=== PATIENT | male | born 1970 | race Caucasian/White ===

== ENCOUNTER → 2018-05-11 10:52 | Outpatient (REF) | payer SELFPAY | LOC: OM 10:52 | PROVIDERS: PCP Nurse Practitioner Family; Visit Provider Nurse Practitioner Family | DX: Z02.79 Encounter for issue of other medical certificate (principal) ==

== ENCOUNTER 2020-04-03 16:34 | Inpatient (IN) | payer OTHER, SELFPAY ==
[2020-04-03] VITALS (30 sets, daily range): BP systolic 116–137; BP diastolic 47–93; PULSE 65–88; RESP 17–39; TEMP 36.7–37; O2SAT 92–99
--- NOTE | 2020-04-03 16:30 | DI.CT_ITS ---
EXAM: CT CHEST/ABD/PEL W CLINICAL HISTORY: 10ft fall, R sided pain, trauma TECHNIQUE: COMPARISON: No exams were available for comparison FINDINGS: CT examination of the chest, abdomen, and pelvis was performed with intravenous infusion of 100 cc of Omnipaque 350. There are minimally displaced fractures involving right 1st through 9th proximal ribs sparing the 4th and 8th ribs, also there are anterolateral fractures involving this 2nd through 9th ribs sparing the 4th and 8th ribs. This implies multiple flail segments although fractures are as noted above essent ially nondisplaced. Transverse process fracture noted on the right T2. There is a small right apical pneumothorax. There are areas of apparent contusion or atelectasis see n dependently in both lungs. No focal consolidation seen. No gross hemo thorax identified. No medi astinal or extra thoracic vascular injury seen. No evidence of pulmonary embolic disease. No medias tinal or hilar adenopathy. There is no evidence of hepatic or splenic injury. A few tiny low-attenuation hepatic masses are see n too small to characterize probably benign. Pancreas is largely fatty replaced otherwise unremarkab le. No biliary dilatation. Gallbladder CT normal. 3 cm right adrenal homogeneous nodule noted, att enuation measurements in the 35-40 Hounsfield unit range, additional evaluation with noncontrast and contrast enhanced adrenal CT recommended. Left adrenals unremarkable. No evidence of acute renal injury or urinary tract obstruction. No significant abdominal wall hernia or hematoma. No evidence of bowel injury. Normal appearance of the appendix. No abdominal vascular injury seen. IMPRESSION: Multiple rib fractures on the right with associated areas of pulmonary contusion and/or atelectasis a nd a small right pneumothorax. 3 cm incidental intermediate attenuation right adrenal nodule, follow-up with adrenal protocol CT req uested to rule out neoplastic disease.
--- NOTE | 2020-04-03 16:30 | DI.CT_ITS ---
EXAM: CT HEAD CERVICAL SPINE WO CLINICAL HISTORY: 10ft fall, R sided pain, trauma TECHNIQUE: COMPARISON: CT CT CHEST/ABD/PEL W from 04/03/2020 FINDINGS: Noncontrast CT the cervical spine was performed. There is a right apical pneumothorax and there are nondisplaced fractures of proximal aspect of 1st through 3rd ribs transverse process fracture T2 also noted. No fracture seen involving the cervical spine. No cervical facet dislocation. Tracheolaryn geal structures appear intact. No cervical mass or adenopathy. Noncontrast cranial CT was performed. No calvarial fracture. Partial opacification of ethmoid sphen oid maxillary and frontal sinuses consistent with chronic sinusitis. There is no evidence of acute i ntracranial hemorrhage, mass effect, or midline shift. The orbital and temporal bone structures appe ar intact. Mastoid air cells are clear. IMPRESSION: No evidence of acute intracranial injury. No evidence of cervical spine injury. Rib fractures noted on the right of ribs 1 through 3 and right T2 transverse process fracture noted along with a small right apical pneumothorax, please see accomp anying chest CT report.
--- NOTE | 2020-04-03 16:44 | ED.GENADUL_ITS ---
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 Denies a loss of consciousness. He was able to get up and move everything. He now has right chest, back, right upper extremity pain. Vital signs are stable and he is oxygenating 94% on RA. Patient placed on hall monitor, IV access established, patient given parenteral analgesia. Given the height of the fall, the clear right upper thorax traumatic injury, patient was referred for CT imaging and plain x-ray of the right shoulder. No acute intracranial findings. There is no traumatic cervical spine abnormality. There are minimally displaced and nondisplaced fractures involving the right first, second, third, fifth, sixth, seventh, ninth ribs posteriorly and nondisplaced right rib fractures anteriorly along the second, third, fifth, sixth, seventh, ninth ribs and T2 right-sided transverse process fracture. There is also minimal right apical pneumothorax. No evidence of acute injury in the abdomen or pelvis. His pain is improved with medication. He has not had tachycardia, nor hypotension, nor hypoxia. He is not anticoagulated and takes no regular medications. Case discussed with Dr. Donahue and will admit for further management. HPI General Mode of arrival: wheelchair . Date/Time Provider Initiated Documentation: 04/03/20 16:34 . Limitations to Documentation: no limitations . Information obtained by: patient . History of Present Illness 49 year old M presents to the emergency department with the chief complaint of 10 foot fall, right-sided pain, described as moderate, Quality is described as dull and constant, and is localized to the chest and right. Patient reports radiation to back. Patient started experiencing this minute(s) and it has been constant. Rest improves symptom(s), Movement worsens symptoms . Patient notes other (No neck pain. Denies loss of consciousness. Denies abdominal pain.); denies headaches and syncope. Patient did receive the following treatments prior to arrival, other (Tylenol) Related Data Home Medications Medication Instructions Recorded Confirmed cyclobenzaprine 10 mg PO TID PRN PRN #60 tab 04/05/20 docusate sodium [Colace] 100 mg PO BID #60 cap 04/05/20 ibuprofen 800 mg PO Q8H #60 tab 04/05/20 oxycodone 5 mg PO Q4H PRN PRN #20 tab 04/05/20 Previous Rx's Medication Instructions Recorded cyclobenzaprine 10 mg PO TID PRN PRN #60 tab 04/05/20 docusate sodium [Colace] 100 mg PO BID #60 cap 04/05/20 ibuprofen 800 mg PO Q8H #60 tab 04/05/20 oxycodone 5 mg PO Q4H PRN PRN #20 tab 04/05/20 Allergies Allergy/AdvReac Type Severity Reaction Status Date / Time Penicillins AdvReac Severe swell up Unverified 04/03/20 16:44 General Stated Complaint: Trauma AICHA: 2 Review of Systems Narrative: Hurts to take a breath, right-sided chest and back pain, no abdominal pain. Denies headache, loss of consciousness, or neck pain. Recently healthy and no concern for illness or sick contact. 6 systems reviewed and otherwise negative [facility] Medical History (Updated 04/03/20 @ 21:57 by Veronica Rolon DO) Chronic sinusitis (Acute) Contusion of lung without open wound into thorax (Acute) Fracture of transverse process of spine without spinal cord lesion (Acute) Low-energy blunt traumatic injury of chest (Acute) Traumatic pneumohemothorax (Acute) Social History Smoking/Tobacco Use Status: Never Alcohol Intake: current Alcohol Intake frequency: a few times a week Alcohol type: beer Substance use type: does not use Do you feel safe at home: Yes Do you feel safe in your relationship?: Yes Exam Narrative Exam Narrative: GEN: awake, alert, oriented 3. Pleasant, well groomed, i nteractive. HEAD: Normocephalic, atraumatic ENT: Mucous membranes moist, oropharynx unremarkable, External ear exam unremarkable EYES: PERRL, EOMI NECK: Full ROM, no WINSTON, no menigismus, no step-off or deformity Back: no midline step-off, tenderness or deformity CHEST/RESP: Right chest/thoracic body rolling machine tender to palpation, clear to auscultation bilateral, no wheeze/rhonchi/rales CARDIOVASCULAR: RRR, no murmur, rub duke. 2+ Rad pulse bilateral ABDOMEN: Soft, nontender, no mass. +Bowel sounds EXT: Right arm held in internal rotation, distal motor is within normal limits. Left upper extremity unremarkable Neuro: Grossly normal neurologic exam, conversant, interactive. Psych: Speech fluent, thoughts congruent, affect normal Course Vital Signs Vital signs: Vital Signs Temperature 36.7 C 04/03/20 16:38 Pulse 68 04/03/20 16:38 Respiratory Rate 25 H 04/03/20 16:38 Blood Pressure 122/68 04/03/20 16:38 Pulse Oximetry 94 L 04/03/20 16:38 Temperature 36.7 C 04/03/20 16:38 Temperature Source Skin 04/03/20 16:38 Pulse 68 04/03/20 16:38 Respiratory Rate 25 H 04/03/20 16:38 Blood Pressure 122/68 04/03/20 16:38 Pulse Oximetry 94 L 04/03/20 16:38 Oxygen Delivery Method Room Air 04/03/20 16:38 Oxygen Flow Rate 0 04/03/20 16:38 Pain Level 10 04/03/20 16:38
[2020-04-03] MEDS: Normal Saline Flush 10 ML SYR IVP (16:45)
[2020-04-03] MEDS: Normal Saline 1,000 ML 1000 ML IV (16:50)
[2020-04-03] MEDS: HYDROmorphone 2 MG/ML VIAL 1 MG IVP (16:53)
[2020-04-03 16:57] LABS: Abs Immature Grans 0.06 k/cumm (0.0-0.09); Absolute Basophil Count 0.02 k/cumm (0.0-0.2); Absolute Eosinophil Count 0.24 k/cumm (0.0-0.7); Absolute Lymphocyte Count 2.22 k/cumm (1.2-3.4); Absolute Monocyte Count 0.81 k/cumm (0.11-0.7); Absolute Neutrophil Count 8.45 k/cumm (1.2-6.7); Basophils % 0.2; HCT 42.8 % (40.0-50.0); HGB 14.4 g/dL (13.5-17.5); Immature Grans % 0.5 %; Lymphocytes % 18.8; Mean Corp. HGB Concentration 33.6 g/dL (32.0-36.0); Mean Corpuscular Hemoglobin 28.9 pg (27.0-33.0); Mean Corpuscular Volume 85.9 fL (80-95); Mean Platelet Volume 9.5 fL (8.0-11.0); Monocytes % 6.9; Neutrophils % 71.6; Platelet Count 315 x1000/uL (130-400); RBC 4.98 m/cumm (4.50-6.00); RBC Distribution Width 13.3 % (11.8-14.1)
--- NOTE | 2020-04-03 17:00 | DI.RAD_ITS ---
EXAM: XR SHOULDER RT COMPLETE 2+V CLINICAL HISTORY: pain after fall TECHNIQUE: COMPARISON: No exams were available for comparison FINDINGS: Four views were obtained. There is no evidence of acute fracture or dislocation. Tiny right apical pneumothorax noted as seen on chest CT. IMPRESSION:
[2020-04-03 17:38] LABS: ALT 48 U/L (16-63); AST 61 U/L (15-37); Albumin 4.1 g/dL (3.4-5.0); Alkaline Phosphatase 74 U/L (46-116); Anion Gap 8.7 mmol/L (3-11); BUN 20 mg/dL (7-18); Bilirubin, Total 0.5 mg/dL (0.2-1.0); CO2 27.3 mmol/L (21.0-32.0); CREATININE 1.35 mg/dL (0.70-1.30); Calcium 8.7 mg/dL (8.5-10.1); Chloride 100 mmol/L (98-107); Estimated GFR 56.41 (mL/min/1.73m2); Glucose 139 mg/dL (74-106); Potassium 3.6 mmol/L (3.5-5.1); Sodium 136 mmol/L (136-145)
[2020-04-03] MEDS: Omnipaque 350 MG/ML 100 ML BTL IJ (17:58)
[2020-04-03] MEDS: Normal Saline - Diluent 50 ML VIAL IV (17:58)
--- NOTE | 2020-04-03 18:03 | DI.VRAD_ITS ---
Addendum created by Lavonne Devries MD on 04/03/2020 6:13:23 PM EDT I discussed case findings with JULIA LENNON 04/03/2020 6:12 PM EST. Initial report created on 04/03/2020 6:03:22 PM EDT PROCEDURE INFORMATION: Exam: CT Head Without Contrast Exam date and time: 04/03/2020 4:45 PM Age: 49 years old Clinical indication: Headache; Other: Head pain S/P fall 10 ft. ; Neck pain; Patient HX: Fall 10 ft. Right sided pain TECHNIQUE: Imaging protocol: Computed tomography of the head without contrast. Radiation optimization: All CT scans at this facility use at least one of these dose optimization techniques: automated exposure control; mA and/or kV adjustment per patient size (includes targeted exams where dose is matched to clinical indication); or iterative reconstruction. COMPARISON: No relevant prior studies available. FINDINGS: Brain: Normal. No hemorrhage. Unremarkable white matter. No mass effect. Ventricles: Normal. No ventriculomegaly. Bones/joints: Unremarkable. No acute fracture. Sinuses: Prominent left maxillary sinus retention cyst. There is moderate mucoperiosteal thickening noted in the sphenoid sinuses. Moderate mucoperiosteal thickening in the ethmoid air cells extending to the left frontoethmoid recess and frontal sinus. Mastoid air cells: Visualized mastoid air cells are well aerated. Soft tissues: Unremarkable. IMPRESSION: 1. No evidence for acute intracranial abnormality. 2. Moderate to severe chronic appearing sinus disease. PROCEDURE INFORMATION: Exam: CT Cervical Spine Without Contrast Exam date and time: 04/03/2020 4:45 PM Age: 49 years old Clinical indication: Headache; Other: Head pain S/P fall 10 ft. ; Neck pain; Patient HX: Fall 10 ft. Right sided pain TECHNIQUE: Imaging protocol: Computed tomography images of the cervical spine without contrast. Radiation optimization: All CT scans at this facility use at least one of these dose optimization techniques: automated exposure control; mA and/or kV adjustment per patient size (includes targeted exams where dose is matched to clinical indication); or iterative reconstruction. COMPARISON: No relevant prior studies available. FINDINGS: Vertebrae: There is mild cervical spondylosis most severe C5-C6 with bilateral foraminal narrowing, no stenosis. No evidence for fracture. Spinal alignment is anatomic. Vertebral body height is well preserved. C2-C3: No significant disc protrusion. No severe spinal canal stenosis. No significant neural foraminal narrowing. C3-C4: No significant disc protrusion. No severe spinal canal stenosis. No significant neural foraminal narrowing. C4-C5: No significant disc protrusion. No severe spinal canal stenosis. No significant neural foraminal narrowing. C5-C6: No significant disc protrusion. No severe spinal canal stenosis. No significant neural foraminal narrowing. C6-C7: No significant disc protrusion. No severe spinal canal stenosis. No significant neural foraminal narrowing. C7-T1: No significant disc protrusion. No severe spinal canal stenosis. No significant neural foraminal narrowing. Other bones/joints: There are fractures of the proximal aspects of the 1st 2nd and 3rd ribs on the right. There is a nondisplaced transverse process fracture on the right at T2. The Soft tissues: Unremarkable. Sinuses: Sinus disease as noted in brain CT report. Thyroid: Mild asymmetry right lobe of the thyroid gland, anatomic variant. Lymph nodes: Incidental note made of lymphoid hyperplasia at the tongue base. Lungs: Lung apices are normal. Pleural space: Concern for trace right apical pneumothorax and probable associated azygos lobe. IMPRESSION: 1. No evidence for acute posttraumatic cervical spine abnormality. Proximal right 1st through 3rd rib fractures and T2 right-sided transverse process fractures noted. 2. Apparent minimal right apical pneumothorax. Dictated and Authenticated by: Lavonne Devries MD. Ordering:SCHUYLER Christopher MD
--- NOTE | 2020-04-03 18:39 | DI.VRAD_ITS ---
Addendum created by Yamila Hope MD on 04/03/2020 6:42:28 PM EDT Sagittal and coronal reformats are submitted for review. The sagittal images demonstrate Schmorl's nodes in the superior endplate of a few thoracic and lumbar vertebral bodies, which is degenerative in nature. Initial report created on 04/03/2020 6:38:59 PM EDT PROCEDURE INFORMATION: Exam: CT Chest With Contrast Exam date and time: 04/03/2020 5:31 PM Age: 49 years old Clinical indication: Other: RT sided pain after fall; Other: Right sided cp after fall TECHNIQUE: Imaging protocol: Computed tomography of the chest with intravenous contrast. Radiation optimization: All CT scans at this facility use at least one of these dose optimization techniques: automated exposure control; mA and/or kV adjustment per patient size (includes targeted exams where dose is matched to clinical indication); or iterative reconstruction. Contrast material: OMNIPAQUE 350; Contrast volume: 100 ml; Contrast route: INTRAVENOUS (IV); COMPARISON: No relevant prior studies available. FINDINGS: Lungs: Mild ground-glass opacity seen throughout the lung siddiqi may represent mild contusion versus atelectasis. Of note, an azygos lobe is noted in the right lung apex containing the azygos vein, which is adjacent to the apical pneumothorax Pleural space:There is a pneumothorax seen anterior to the right middle lobe and a smaller pneumothorax at the right lung apex. There is a trace right pleural effusion. Heart: No cardiomegaly. No pericardial effusion. Aorta: Unremarkable. No aortic aneurysm. Lymph nodes: Unremarkable. No enlarged lymph nodes. Bones/joints: There are minimally displaced and nondisplaced fractures involving the right 1st, 2nd, 3rd, 5th, 6th , 7th and 9th rib fractures posteriorly at the costovertebral junction. There are also nondisplaced right rib fractures anterior laterally involving the 2nd, 3rd, 5th, 6th, 7th and 9th ribs. Soft tissues: Unremarkable. IMPRESSION: 1. Small pneumothorax seen predominantly at the right lower lobe and right lung apex. Of note there is an azygos vein traversing the lower right lung apex. 2. Multiple anterior and posterior right rib fractures which are minimally displaced and nondisplaced. 3. Mild ground-glass opacities may represent mild contusion versus atelectasis. PROCEDURE INFORMATION: Exam: CT Abdomen And Pelvis With Contrast Exam date and time: 04/03/2020 5:31 PM Age: 49 years old Clinical indication: Other: RT sided pain after fall; Other: Right sided cp after fall TECHNIQUE: Imaging protocol: Computed tomography of the abdomen and pelvis with intravenous contrast. Radiation optimization: All CT scans at this facility use at least one of these dose optimization techniques: automated exposure control; mA and/or kV adjustment per patient size (includes targeted exams where dose is matched to clinical indication); or iterative reconstruction. Contrast material: OMNIPAQUE 350; Contrast volume: 100 ml; Contrast route: INTRAVENOUS (IV); COMPARISON: No relevant prior studies available. FINDINGS: Liver: There are small hypodensities in the liver, which are too small to characterize but could represent cysts. Gallbladder and bile ducts: Normal. No calcified stones. No ductal dilation. Pancreas: There is fatty atrophy of the pancreas. Spleen: Normal. No splenomegaly. Adrenals: There is a 3.3 cm nodule in the right adrenal gland. Kidneys and ureters: Normal. No hydronephrosis. Stomach and bowel: Unremarkable. No obstruction. No mucosal thickening. Appendix: No evidence of appendicitis. Intraperitoneal space: Unremarkable. No free air. No significant fluid collection. Vasculature: Unremarkable. No abdominal aortic aneurysm. Lymph nodes: Unremarkable. No enlarged lymph nodes. Bladder: Unremarkable as visualized. Reproductive: Unremarkable as visualized. Bones/joints: Unremarkable. No acute fracture. Soft tissues: Unremarkable. IMPRESSION: 1. No evidence of acute injury in the abdomen and pelvis. 2. 3.3 cm right adrenal gland nodule, which is nonspecific. If there is further clinical concern, nonemergent dedicated adrenal gland imaging may be obtained. THIS REPORT CONTAINS FINDINGS THAT MAY BE CRITICAL TO PATIENT CARE. The findings were verbally communicated via telephone conference with JULIA LENNON at 6:23 PM EDT on 04/03/2020. The findings were acknowledged and understood. Dictated and Authenticated by: Yamila Hope MD. Ordering:SCHUYLER Christopher MD
--- NOTE | 2020-04-03 18:45 | DI.VRAD_ITS ---
PROCEDURE INFORMATION: Exam: XR Right Shoulder Exam date and time: 04/03/2020 5:06 PM Age: 49 years old Clinical indication: Shoulder; Right; Patient HX: Pain after fall 10 ft. TECHNIQUE: Imaging protocol: XR Right shoulder. Views: 2 or more views. COMPARISON: No relevant prior studies available. FINDINGS: Bones/joints: There is no acute fracture or dislocation. Pleural space: The known right apical pneumothorax is partially visualized. Soft tissues: Normal. IMPRESSION: 1. No acute fracture or dislocation. 2. Partially visualized right apical pneumothorax, seen on prior CT of the chest. Dictated and Authenticated by: Yamila Hope MD. Ordering:SCHUYLER Christopher MD
--- NOTE | 2020-04-03 18:51 | W.PM.HP.N ---
Date of service: 04/03/20 Time of Service: 18:51 Assessment and Plan Assessment and plan (1) Multiple fractures of ribs of right side: Status: Acute Assessment and plan: pulm toilet pain control obs for bleeding and over injury -high risk of pneumonia. will have anethesia see for rib blocks and PT . TP fx does not require bracing, adn is stable Fx. 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 He landed on his right chest. He sustained multiple right rib fractures. He has a trace right pneumothorax. There is also some mild contusion to the right lung. He also sustained a fractured T2 vertebral process and 8 ribs on the right side. He denies any loss of consciousness and has memory is intact for the event. He denies any diabetes, seizures any cardiac problems. He said he did not have chest pain or blackout. He has no medical problems. He is never had surgery or anesthesia before. He is not on any medications. He is a non-smoker. He is allergic to penicillin. At this time he has some mild stiffness in his C-spine and complains of pain basically in his right chest. He is moving all his extremities equally and no pain swelling bruising. He has no numbness or tingling in his hands and feet. He is neurologically intact. He can remove his neck with passive range of motion with no pain. He is no abdom or pelvic pain. Review of Systems All systems reviewed & are unremarkable except as noted in HPI and below Constitutional Constitutional: Reports as per HPI, Reports system reviewed and no additional complaints, except as documented, Denies anorexia, Denies chills, Denies difficulty sleeping, Denies fatigue, Denies headache(s), Denies lethargy, Denies malaise, Denies poor appetite, Denies weakness, Denies weight gain and Denies weight loss Eyes Eyes: Reports as per HPI, Reports system reviewed and no additional complaints, except as documented and Denies change in vision ENT Ears, Nose, Mouth, and Throat: Reports system reviewed and no additional complaints, except as documented, Reports as per HPI, Denies change in voice, Denies dental pain, Denies dysphagia, Denies dizziness, Denies facial pain, Denies headache(s) and Denies odynophagia Cardiovascular Cardiovascular: Reports as per HPI, Reports system reviewed and no additional complaints, except as documented, Denies chest pain, Denies chest pain with activity, Denies syncope, Denies leg edema and Denies dyspnea Respiratory Respiratory: Reports as per HPI, Reports system reviewed and no additional complaints, except as documented, Denies chest congestion, Denies cough, Denies pain with cough and Denies dyspnea Gastrointestinal Gastrointestinal: Reports as per HPI, Reports system reviewed and no additional complaints, except as documented, Denies abdominal pain, Denies bloating, Denies change in bowel habits, Denies change in stool character, Denies constipation, Denies cramping, Denies dysphagia, Denies early satiety, Denies heartburn, Denies diarrhea, Denies nausea, Denies odynophagia and Denies vomiting Genitourinary Genitourinary: Reports system reviewed and no additional complaints, except as documented Musculoskeletal Musculoskeletal: Reports system reviewed and no additional complaints, except as documented, Reports as per HPI, Denies abnormal gait, Denies arthralgias and Denies muscle weakness Integumentary/Breasts Skin/Breast: Reports system reviewed and no additional complaints, except as documented, Reports as per HPI, Denies changing lesions, Denies new lesions and Denies jaundice Neurologic Neurologic: Reports system reviewed and no additional complaints, except as documented, Reports as per HPI, Denies abnormal speech, Denies abnormal gait, Denies dizziness, Denies syncope, Denies headache(s), Denies memory loss and Denies weakness Psychiatric Psychiatric: Reports system reviewed and no additional complaints, except as documented, Reports as per HPI, Denies change in appetite and Denies memory loss Endocrine Endocrine: Denies fatigue, Denies polydipsia and Denies polyuria Hematologic/Lymphatic Hematologic/Lymphatic: Reports system reviewed and no additional complaints, except as documented, Denies easy bleeding and Denies easy bruising Allergic/Immunologic Allergic/Immunologic: Denies system reviewed and no additional complaints, except as documented, Reports as per HPI and Denies urticaria [facility] Medical History (Updated 04/03/20 @ 21:57 by Veronica Rolon DO) Chronic sinusitis (Acute) Contusion of lung without open wound into thorax (Acute) Fracture of transverse process of spine without spinal cord lesion (Acute) Low-energy blunt traumatic injury of chest (Acute) Traumatic pneumohemothorax (Acute) Social History Smoking/Tobacco Use Status: Never Alcohol Intake: current Alcohol Intake frequency: a few times a week Alcohol type: beer Substance use type: does not use Do you feel safe at home: Yes Do you feel safe in your relationship?: Yes Meds Home Medications and Allergies Home Medications Medication Instructions Recorded Confirmed Type Unknown [No Known Home Meds] 04/03/20 04/03/20 History Allergies Allergy/AdvReac Type Severity Reaction Status Date / Time Penicillins AdvReac Severe swell up Unverified 04/03/20 16:44 Exam Const General: cooperative, healthy appearing, comfortable, no acute distress, well developed and well groomed Nutritional Appearance: average body habitus and well nourished Orientation: alert, awake and oriented x3 HENMT Head: normal to inspection, normocephalic and atraumatic Ears: hearing grossly normal bilaterally and external ears normal General nose exam: external nose normal Face and sinus: normal facial exam and sinuses nontender Mouth: oral mucosae normal, lip normal, tongue normal and moist mucous membranes Teeth and gingiva: dentition normal Eyes General: appearance normal, both eyes and all related structures Conjunctivae: conjunctivae normal Sclera: sclerae normal Pupils: PERRL Neck Neck: normal visual inspection and full ROM Chest Chest: abnormal inspection of the chest, localized rib tenderness with anteroposterior compression, tenderness and other (swelling. no crepitus. no echymosis ) Resp Effort & Inspection: normal respiratory effort, able to speak in complete sentences, no cough, no nasal flaring, not tachypneic and no use of accessory muscles Auscultation: clear to auscultation bilaterally, no rales, no rhonchi and no wheezes Cardio Jugular venous pressure: no JVD Rate: regular rate Rhythm: regular rhythm GI Inspection: normal to inspection, no edema and non-distended Palpation: soft, no masses, nontender and No ascites Auscultation: normal bowel sounds Skin General skin exam: no rashes or lesions noted Trauma: no lacerations or abrasions Neuro General: patient alert, patient oriented x3, oriented, gait normal, moves all extremities, no focal motor deficits and CN's II-XI intact bilaterally Cognition: normal cognition Speech: speech normal Gait: normal gait Motor: muscle tone normal throughout Extrem General: normal to inspection, full ROM and no clubbing, cyanosis or edema Psych Appearance: grossly normal and well kempt Mental Status: mental status grossly normal Speech and Movement: speech and movement normal Affect: normal affect Results Labs Result diagrams: 04/03/20 16:45 04/03/20 16:45 Labs: Laboratory Results - last 24 hr 04/03/20 04/03/20 16:45 16:45 WBC 11.80 H RBC 4.98 Hgb 14.4 Hct 42.8 MCV 85.9 MCH 28.9 MCHC 33.6 RDW 13.3 Plt Count 315 MPV 9.5 Immature Gran % 0.5 Neutrophils % 71.6 Lymphocytes % 18.8 Monocytes % 6.9 Eosinophils % 2.0 Basophils % 0.2 Absolute Neutrophils 8.45 H Absolute Lymphocytes 2.22 Absolute Monocytes 0.81 H Absolute Eosinophils 0.24 Absolute Basophils 0.02 Sodium 136 Potassium 3.6 Chloride 100 Carbon Dioxide 27.3 Anion Gap 8.7 BUN 20 H Creatinine 1.35 H Estimated GFR/1.73 m2 56.41 Glucose 139 H Calcium 8.7 Total Bilirubin 0.5 AST 61 H ALT 48 Alkaline Phosphatase 74 Total Protein 8.0 Albumin 4.1 Last Vital Signs Temp 36.7 C 04/03/20 16:38 Pulse 68 04/03/20 17:01 Resp 29 H 04/03/20 18:20 BP 127/80 04/03/20 17:01 Pulse Ox 92 L 04/03/20 18:20 COVID-19 Screening Have you,or household,traveled outside [place] in last 14 days?: No Had IN PERSON contact w/suspected or confirmed C-19 person: No
[2020-04-03] MEDS: Ketorolac 15 MG/ML VIAL IVP (19:26)
[2020-04-03] MEDS: Acetaminophen 500 MG TAB 1000 MG PO (19:27)
[2020-04-03] MEDS: Docusate Sodium 100 MG CAP PO (21:19)
[2020-04-03] MEDS: Albuterol 2.5 MG/3 ML INH SOLN VIAL UPD (21:19)
[2020-04-04] VITALS (17 sets, daily range): BP systolic 99–112; BP diastolic 67–73; PULSE 58–68; RESP 1–23; TEMP 36.2–36.8; O2SAT 95–100
[2020-04-04] MEDS: Acetaminophen 500 MG TAB 1000 MG PO ×4 (02:15→20:02)
[2020-04-04] MEDS: Albuterol 2.5 MG/3 ML INH SOLN VIAL UPD ×5 (02:16→23:13)
[2020-04-04] MEDS: Ketorolac 30 MG/ML VIAL IVP ×4 (03:57→22:15)
[2020-04-04] MEDS: Normal Saline Flush 10 ML SYR IVP ×2 (03:57→22:15)
[2020-04-04 07:25] LABS: Abs Immature Grans 0.01 k/cumm (0.0-0.09); Absolute Basophil Count 0.01 k/cumm (0.0-0.2); Absolute Eosinophil Count 0.09 k/cumm (0.0-0.7); Absolute Lymphocyte Count 1.13 k/cumm (1.2-3.4); Absolute Monocyte Count 0.76 k/cumm (0.11-0.7); Basophils % 0.1; Eosinophils % 1.3; HCT 39.8 % (40.0-50.0); HGB 13.1 g/dL (13.5-17.5); Immature Grans % 0.1 %; Lymphocytes % 16.6; Mean Corp. HGB Concentration 32.9 g/dL (32.0-36.0); Mean Corpuscular Hemoglobin 28.7 pg (27.0-33.0); Mean Corpuscular Volume 87.3 fL (80-95); Mean Platelet Volume 9.9 fL (8.0-11.0); Monocytes % 11.2; Neutrophils % 70.7; Platelet Count 252 x1000/uL (130-400); RBC 4.56 m/cumm (4.50-6.00); RBC Distribution Width 13.7 % (11.8-14.1); White Blood Cell Count 6.79 k/cumm (4.4-10.8)
[2020-04-04 07:46] LABS: ALT 48 U/L (16-63); AST 86 U/L (15-37); Albumin 3.4 g/dL (3.4-5.0); Alkaline Phosphatase 58 U/L (46-116); Anion Gap 7.2 mmol/L (3-11); BUN 13 mg/dL (7-18); Bilirubin, Total 0.9 mg/dL (0.2-1.0); CO2 26.8 mmol/L (21.0-32.0); CREATININE 1.21 mg/dL (0.70-1.30); Calcium 8.2 mg/dL (8.5-10.1); Chloride 104 mmol/L (98-107); Glucose 112 mg/dL (74-106); Lipase 27 U/L (73-393); Potassium 4.2 mmol/L (3.5-5.1); Sodium 138 mmol/L (136-145); Total Protein 6.9 g/dL (6.4-8.2)
--- NOTE | 2020-04-04 08:09 | DI.RAD_ITS ---
EXAM: XR CHEST 2V PA LATERAL CLINICAL HISTORY: ptx/rib fx/chest trauma TECHNIQUE: COMPARISON: No exams were available for comparison FINDINGS: Heart is not enlarged. Multiple rib fractures were seen on CT but difficult to visualize on this rad iograph. Pneumothorax was also identified on CT but difficult to see here. Question small bilateral pleural effusions with slight costophrenic blunting posteriorly. Minimal areas of atelectasis in th e lung bases left greater than right. IMPRESSION: Mild bibasilar atelectasis.
[2020-04-04] MEDS: Enoxaparin 40 MG/0.4 ML SYR SC (08:36)
[2020-04-04] MEDS: Docusate Sodium 100 MG CAP PO ×2 (08:36→20:02)
--- NOTE | 2020-04-04 09:28 | PT.INIE ---
Date of service: 04/04/20 Time of Service: 09:28 PT Notes Visit Reasons: MULTIPLE RIB FRACTURES Physical Therapy Inpatient Initial Evaluation Date: 04/04/2020 Referring Doctor: Veronica Rolon MD PT Orders: PT CONSULT: Eval/treat. S/p 9 rib fracture ? right. Precautions: Fall. Standard. Activity as tolerated. Patient Profile/Admitting Diagnosis: Pee is a 49-year-old male who presented to the ED due to a fall on 04/03/2020 which caused him to land on his right shoulder and ride side of trunk. Patient sustained multiple fracture of ribs 1 through 8 on the right side, low blunt traumatic injury of chest, fracture of the transverse process of T2 spine, and lung contusion. Referral for skilled PT services was sent in to address resulting impairments in mobility performance. PMHX: Medical History (Updated 04/03/20 @ 21:57 by Veronica Rolon DO) Chronic sinusitis (Acute) Contusion of lung without open wound into thorax (Acute) Fracture of transverse process of spine without spinal cord lesion (Acute) Low-energy blunt traumatic injury of chest (Acute) Traumatic pneumohemothorax (Acute) Social History/Home Situation: Lives with significant other in a private home. He has been independent with all aspects of ADLs without the need for an assistive ambulatory device nor adaptive equipment. 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 Equipment Owned/DME: None Subjective: Continues report discomfort on his right side of his chest and R his shoulder but with much less intensity at 6/10. He states that walking about surprisingly helped with minimizing pain. Objective: General Observation: Telemetry monitoring in place. No visible contusion on right side of chest and back. Mental Status: Alert and oriented x4 Pain: 6/10 on the right side of his chest Vital Signs: Oxygen saturation high of 100% and low of 97% on room air throughout ambulation activity ROM: Right Upper Extremity: Shoulder Flexion WFL. Shoulder abduction WFL. Elbow flexion WFL. Wrist flexion WFL. Opening and closing of hand WFL. Left Upper Extremity: Shoulder Flexion WFL. Shoulder abduction WFL. Elbow flexion WFL. Wrist flexion WFL. Opening and closing of hand WFL. Right Lower Extremity: Hip flexion WFL. Hip abduction WFL. Knee flexion WFL. Ankle dorsiflexion WFL. Ankle plantarflexion WFL. Left Lower Extremity: Hip flexion WFL. Hip abduction WFL. Knee flexion WFL. Ankle dorsiflexion WFL. Ankle plantarflexion WFL. Strength: Right Upper Extremity: Shoulder flexors 5/5. Shoulder abductors 5/5. Elbow flexors 5/5. Elbow extensors 5/5. Pulp Grinder And Blender strong. Left Upper Extremity: Shoulder flexors 5/5. Shoulder abductors 5/5. Elbow flexors 5/5. Elbow extensors 5/5. Pulp Grinder And Blender strong. Right Lower Extremity: Hip flexors 5/5. Hip abductors 5/5. Knee flexors 5/5. Knee extensors 5/5. Ankle dorsiflexors 5/5. Ankle plantarflexors 5/5. Left Lower Extremity:Hip flexors 5/5. Hip abductors 5/5. Knee flexors 5/5. Knee extensors 5/5. Ankle dorsiflexors 5/5. Ankle plantarflexors 5/5. Sensation: Intact as to pain and pressure on bilateral lower extremities. Bed Mobility/Transfers: Rolling dependent Supine to sit independent Sit to supine independent Sit to stand independent Stand to sit independent Bed to chair independent Chair to bed independent Gait: Patient tolerated 300 feet of level surface ambulation using no assistive ambulatory device with just supervision of PT without any complaints of headache, chest pain, and lightheadedness. Bilateral in-toeing seen otherwise gait pattern is unremarkable. Balance: Static Sitting: Normal Dynamic Sitting: Normal Static Standing: Good Dynamic Standing: Good Special Tests: Mobility Limitations Standardized Measure [facility] AM-PAC 6 clicks Basic Mobility Inpatient Short Form: Raw Score: 24 CMS Score: 0% deficit Informed Consent/Education: Patient instructed in purpose of PT consult and plan of care. Assessment: Pee does not present with any functional mobility decline and does not require use of an assistive ambulatory device for all mobility ADL performance. He may discharge to home once medically cleared. He will benefit from hallway ambulation with nursing staff with supervision to minimize post injury respiratory complications and to maintain independent mobility level. Patient is assessed as a 9161 low complexity based on the following: History: 49-year-old male with impairment level findings, functional limitations, and past medical history as indicated above Examination: No demonstrable impairment in strength, balance, and mobility level with underlying impairments and functional limitations as documented above Presentation: Stable Decision Makin low complexity Goals: N/A. No skilled PT services needed at this time. PT evaluation only. Plan of Care/Treatment Plan: N/A. No skilled PT services needed at this time. PT evaluation only. DISCHARGE RECOMMENDATIONS: Home when medically cleared by MD. No equipment needs needs at this time. TREATMENT CODE/TIME: 01395 x 24 minutes beginning at 9:28 AM. Thank you for the opportunity to participate in the care of this patient. Selene Evans PT, DPT, CLT [facility] [place], [place]
[2020-04-04] MEDS: Bupivacaine 0.25% Pres-Free 10 ML VIAL (10:08)
[2020-04-04] MEDS: Bupivacaine 0.25% Pres-Free 30 ML VIAL (10:08)
--- NOTE | 2020-04-04 10:17 | W.PM.PROGNOT ---
Date of Service Date of service: 04/04/20 Time of Service: 08:30 Assessment and Plan Assessment and plan (1) Contusion of lung without open wound into thorax: Status: Acute (2) Chronic sinusitis: Status: Acute (3) Fracture of transverse process of spine without spinal cord lesion: Status: Acute (4) Traumatic pneumohemothorax: Status: Acute (5) Low-energy blunt traumatic injury of chest: Status: Acute (6) Multiple fractures of ribs of right side: Status: Acute Assessment and plan: some mild neck pain- no neurologic s/s. will have anesthesia see pt for rib blocks for pain control pulm toilet pain control Subjective Subjective Interval history since last seen: no headaches. No CP or SOB. no productive cough. no dysuria. no leg pain or swelling. Still having signif pain. CXR reviewed. starting to develop some atelectasis. belly soft. Neuro intact. LE are neg. Exam Const General: cooperative, healthy appearing, comfortable, no acute distress, well developed and well groomed Nutritional Appearance: average body habitus and well nourished Orientation: alert, awake and oriented x3 HENMT Head: normal to inspection, normocephalic and atraumatic Ears: hearing grossly normal bilaterally and external ears normal General nose exam: external nose normal Face and sinus: normal facial exam and sinuses nontender Mouth: oral mucosae normal, lip normal, tongue normal and moist mucous membranes Teeth and gingiva: dentition normal Eyes General: appearance normal, both eyes and all related structures Conjunctivae: conjunctivae normal Sclera: sclerae normal Pupils: PERRL Neck Neck: normal visual inspection and full ROM Chest Chest: abnormal inspection of the chest, localized rib tenderness with anteroposterior compression and tenderness Resp Effort & Inspection: normal respiratory effort, able to speak in complete sentences, no cough, no nasal flaring, not tachypneic and no use of accessory muscles Auscultation: clear to auscultation bilaterally, no rales, no rhonchi and no wheezes Cardio Jugular venous pressure: no JVD Rate: regular rate Rhythm: regular rhythm GI Inspection: normal to inspection, no edema and non-distended Palpation: soft, no masses, nontender and No ascites Auscultation: normal bowel sounds Skin General skin exam: no rashes or lesions noted Trauma: no lacerations or abrasions Neuro General: patient alert, patient oriented x3, oriented, gait normal, moves all extremities, no focal motor deficits and CN's II-XI intact bilaterally Cognition: normal cognition Speech: speech normal Gait: normal gait Motor: muscle tone normal throughout Extrem General: normal to inspection, full ROM and no clubbing, cyanosis or edema Psych Appearance: grossly normal and well kempt Mental Status: mental status grossly normal Speech and Movement: speech and movement normal Affect: normal affect Objective Objective Clinical Data: Abnormal lab results 04/03/20 04/03/20 04/04/20 Range/Units 16:45 16:45 06:25 WBC 11.80 H (4.4-10.8) k/cumm Hgb (13.5-17.5) g/dL Hct (40.0-50.0) % Absolute Neutrophils 8.45 H (1.2-6.7) k/cumm Absolute Lymphocytes (1.2-3.4) k/cumm Absolute Monocytes 0.81 H (0.11-0.7) k/cumm BUN 20 H (7-18) mg/dL Creatinine 1.35 H (0.70-1.30) mg/dL Glucose 139 H 112 H (74-106) mg/dL Calcium 8.2 L (8.5-10.1) mg/dL AST 61 H 86 H (15-37) U/L 04/04/20 Range/Units 06:25 WBC (4.4-10.8) k/cumm Hgb 13.1 L (13.5-17.5) g/dL Hct 39.8 L (40.0-50.0) % Absolute Neutrophils (1.2-6.7) k/cumm Absolute Lymphocytes 1.13 L (1.2-3.4) k/cumm Absolute Monocytes 0.76 H (0.11-0.7) k/cumm BUN (7-18) mg/dL Creatinine (0.70-1.30) mg/dL Glucose (74-106) mg/dL Calcium (8.5-10.1) mg/dL AST (15-37) U/L Vital Signs Temperature 36.8 C 04/04/20 07:20 Temperature Source Tympanic 04/04/20 07:20 Pulse 60 04/04/20 09:24 Pulse Rhythm Regular 04/04/20 08:30 Pulse 85 04/03/20 20:01 Respiratory Rate 12 04/04/20 09:24 Respiratory Effort Short of Breath 04/04/20 09:14 Respiratory Depth Normal 04/04/20 09:14 Respiratory Pattern Normal 04/04/20 09:14 Blood Pressure 105/73 04/04/20 07:20 Blood Pressure Mean 76 04/03/20 20:01 Pulse Oximetry 100 04/04/20 09:24 Oxygen Delivery Method Nasal Cannula 04/04/20 09:14 Oxygen Flow Rate 1 04/04/20 09:14 Pain Level 0 04/04/20 07:20 Intake & Output 04/03/20 04/03/20 04/04/20 11:59 23:59 11:59 Intake Total 1000 / 1000 240 / 240 Balance 1000 / 1000 240 / 240 Weight 108.409 kg Intake: IV 1000 / 1000 Oral 240 / 240 Other: Urine Color Yellow Urine Appearance Clear Clear Urine Odor None Comment voided in the toilet indeoendently Voiding Methods Toilet Laboratory Results WBC 6.79 k/cumm (4.4-10.8) D 04/04/20 06:25 RBC 4.56 m/cumm (4.50-6.00) 04/04/20 06:25 Hgb 13.1 g/dL (13.5-17.5) L 04/04/20 06:25 Hct 39.8 % (40.0-50.0) L 04/04/20 06:25 MCV 87.3 fL (80-95) 04/04/20 06:25 MCH 28.7 pg (27.0-33.0) 04/04/20 06:25 MCHC 32.9 g/dL (32.0-36.0) 04/04/20 06:25 RDW 13.7 % (11.8-14.1) 04/04/20 06:25 Plt Count 252 x1000/uL (130-400) 04/04/20 06:25 MPV 9.9 fL (8.0-11.0) 04/04/20 06:25 Immature Gran % 0.1 % 04/04/20 06:25 Neutrophils % 70.7 04/04/20 06:25 Lymphocytes % 16.6 04/04/20 06:25 Monocytes % 11.2 04/04/20 06:25 Eosinophils % 1.3 04/04/20 06:25 Basophils % 0.1 04/04/20 06:25 Absolute Neutrophils 4.80 k/cumm (1.2-6.7) 04/04/20 06:25 Absolute Lymphocytes 1.13 k/cumm (1.2-3.4) L 04/04/20 06:25 Absolute Monocytes 0.76 k/cumm (0.11-0.7) H 04/04/20 06:25 Absolute Eosinophils 0.09 k/cumm (0.0-0.7) 04/04/20 06:25 Absolute Basophils 0.01 k/cumm (0.0-0.2) 04/04/20 06:25 Sodium 138 mmol/L (136-145) 04/04/20 06:25 Potassium 4.2 mmol/L (3.5-5.1) 04/04/20 06:25 Chloride 104 mmol/L (98-107) 04/04/20 06:25 Carbon Dioxide 26.8 mmol/L (21.0-32.0) 04/04/20 06:25 Anion Gap 7.2 mmol/L (3-11) 04/04/20 06:25 BUN 13 mg/dL (7-18) D 04/04/20 06:25 Creatinine 1.21 mg/dL (0.70-1.30) 04/04/20 06:25 Estimated GFR/1.73 m2 >= 60.00 (mL/min/1.73m2) 04/04/20 06:25 Glucose 112 mg/dL (74-106) H 04/04/20 06:25 Calcium 8.2 mg/dL (8.5-10.1) L 04/04/20 06:25 Total Bilirubin 0.9 mg/dL (0.2-1.0) 04/04/20 06:25 AST 86 U/L (15-37) H 04/04/20 06:25 ALT 48 U/L (16-63) 04/04/20 06:25 Alkaline Phosphatase 58 U/L (46-116) 04/04/20 06:25 Total Protein 6.9 g/dL (6.4-8.2) 04/04/20 06:25 Albumin 3.4 g/dL (3.4-5.0) 04/04/20 06:25 Lipase 27 U/L (73-393) 04/04/20 06:25
--- NOTE | 2020-04-04 12:22 | W.NUTRFU ---
Date of service: 04/04/20 Time of Service: 12:22 Nutritional Follow up NOTE: 49 year old male with multiple rib fractures. BMI 24 indicates class 1 obesity. Following Regular Meal Plan with adequate intake. Not at risk for nutritional decline at this time. Will follow prn. Time Spent in Nutritional Counseling and Treatment: 0
[2020-04-04 13:37] LABS: COVID-19 RT-PCR UVMMC Result Negative (Negative)
--- NOTE | 2020-04-04 15:02 | CHAPLAIN ---
Pee was pleasant and easily engaged in a conversation. When I asked if he'd been in touch with family or friends, he said he had, by phone. His neighbor and friend is Chapin Madrigaler, [employer] and Pee said even Chapin wasn't allowed to visit it him. I explained my role and offered support.
[2020-04-04] MEDS: oxyCODONE 5 MG TAB PO (23:24)
[2020-04-05] MEDS: Normal Saline Flush 10 ML SYR IVP (03:09)
[2020-04-05] MEDS: Acetaminophen 500 MG TAB 1000 MG PO ×2 (03:09→08:04)
[2020-04-05] MEDS: Ketorolac 30 MG/ML VIAL IVP ×2 (03:10→10:16)
[2020-04-05 03:16] VITALS: BP 101/66; PULSE 56; RESP 17; TEMP 36.7; O2SAT 97
[2020-04-05] MEDS: Albuterol 2.5 MG/3 ML INH SOLN VIAL UPD ×2 (06:26→12:55)
[2020-04-05 08:00] VITALS: BP 110/60; PULSE 60; RESP 18; TEMP 36.5; O2SAT 96; O2SAT 97
[2020-04-05] MEDS: Enoxaparin 40 MG/0.4 ML SYR SC (08:03)
--- NOTE | 2020-04-05 12:58 | DSE_ITS ---
Date of service: 04/05/20 Time of Service: 12:58 DS: Diagnosis Discharge Diagnosis (1) Contusion of lung without open wound into thorax: Status: Acute (2) Chronic sinusitis: Status: Acute (3) Fracture of transverse process of spine without spinal cord lesion: Status: Acute (4) Traumatic pneumohemothorax: Status: Acute (5) Low-energy blunt traumatic injury of chest: Status: Acute (6) Multiple fractures of ribs of right side: Status: Acute Discharge Plan Disposition Patient Disposition: HOME Condition: Stable Discharge Details Chief Complaint: Trauma Clinical Impression: Multiple fractures of ribs of right side Reason For Visit: MULTIPLE RIB FRACTURES Admit Date/Time: 04/03/20 18:51 Admit Provider: Veronica Rolon Attending Provider: Veronica Rolon Primary Care Provider: Johan Ferreira ED Provider: Ashwin Rodriguez Hospital Course Hospital Course: Patient sustained blunt chest trauma on . His injuries include a broken ribs on the right chest, T2 transverse process fracture, and a small pneumothorax. He was admitted to the hospital for monitoring pain management. He has not developed pneumonia. Anesthesia was consulted for rib blocks. He is no signs symptoms of pneumonia at this time. His pain is well controlled. He was given instructions in wound care activity and warning signs. He follow-up himself on Tuesday. Continue to do incentive spirometry at home. May need to follow-up for further rib blocks and this can be arranged as outpatient with anesthesia. Home Meds and New Rx's Prescriptions: New cyclobenzaprine 10 mg Tablet 10 mg PO TID PRN PRNQty: 60 RF: 2 docusate sodium [Colace] 100 mg Capsule 100 mg PO BID Qty: 60 RF: 2 oxycodone 5 mg Tablet 5 mg PO Q4H PRN PRNQty: 20 RF: 0 ibuprofen 800 mg tablet 800 mg PO Q8H Qty: 60 RF: 6 Discharge Instructions Additional Instructions: Keep an ice bag on the R chest. 20 minutes on and 20 minutes off. Ice keeps the swelling down and swelling causes pain. Make sure you wrap the ice pack in a towel and don't apply directly to the skin. -No driving if you are taking narcotic pain medications. -Follow-up with Dr. Rolon next Tuesday. You will need to call on Tuesday to make an appointment: [phone]. -regular diet -no straining to move bowels -pain meds are very constipating: if you do not move your bowels daily take a dose of OTC milk of magnesia -It is ok to shower. No bathe, soaking, swimming or hot tubs -You may find that your appetite is smaller. Eat 3-6 small meals throughout the day. It is important to drink lots of water after surgery, 6-10 glasses a day. Coffee and soda do not count. -Do not drink alcohol or use taking narcotic pain medication. 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 -We do want you up walking, at least 5-6 times per day. This is very important to prevent pneumonia and blood clots. You can climb stairs, take them slowly. -No lifting over 5 pounds. This is very important to further injury. -You may find that you are very tired after surgery- this is normal. -please do not smoke for a minimum of 72 hours after surgery. -Off of work for 2 weeks. Will decide return to work status at follow-up appointment -no chiropractor for 6 months. -Will need to come to the hospital to have a chest x-ray prior to follow-up appointment on Tuesday Stand Alone Forms: Nursing Discharge Form Activity:: No lifting over 5 pounds. See above Equipment/Supplies:: Incentive spirometry Diet:: Normal Diet DS: Summary Status at Discharge Functional status at discharge: independent ambulation Overall status at discharge: patient is back to baseline Mental Status: mental status grossly normal Speech and Movement: speech and movement normal Mood: congruent mood Affect: normal affect Exam Psych Mental Status: mental status grossly normal Speech and Movement: speech and movement normal Mood: congruent mood Affect: normal affect DS: Data Vitals/I&O Vitals and I&O: Vital Signs Temperature 36.7 C 04/05/20 03:16 Temperature Source Tympanic 04/05/20 03:16 Pulse 56 L 04/05/20 03:16 Pulse Rhythm Regular 04/05/20 08:00 Pulse 85 04/03/20 20:01 Respiratory Rate 17 04/05/20 03:16 Respiratory Effort Short of Breath 04/05/20 08:00 Respiratory Depth Normal 04/05/20 08:00 Respiratory Pattern Normal 04/05/20 08:00 Blood Pressure 101/66 04/05/20 03:16 Blood Pressure Mean 76 04/03/20 20:01 Pulse Oximetry 97 04/05/20 08:00 Oxygen Delivery Method Room Air 04/05/20 08:00 Oxygen Flow Rate 0 04/05/20 08:00 Pain Level 4 04/05/20 03:16 Intake & Output 04/04/20 04/05/20 04/05/20 23:59 11:59 23:59 Intake Total 1060 / 1300 Balance 1060 / 1300 Intake: IV Oral 1050 / 1290 Other: Urine Color Yellow Urine Appearance Clear Clear Urine Odor Normal Voiding Methods Toilet Toilet Data Completed and Pending Labs on day of discharge: Labs from last 24 hours 04/03/20 19:14 COVID-19 PCR Negative Nasopharyn COVID-19 PCR Not Applicable Ref Test Perform Site [facility] lab [facility] Medical History (Updated 04/03/20 @ 21:57 by Veronica Rolon DO) Chronic sinusitis (Acute) Contusion of lung without open wound into thorax (Acute) Fracture of transverse process of spine without spinal cord lesion (Acute) Low-energy blunt traumatic injury of chest (Acute) Traumatic pneumohemothorax (Acute) Social History Smoking/Tobacco Use Status: Never Alcohol Intake: current Alcohol Intake frequency: a few times a week Alcohol type: beer Substance use type: does not use Do you feel safe at home: Yes Do you feel safe in your relationship?: Yes
--- NOTE | 2020-04-05 12:58 | W.PM.PROGNOT ---
Date of Service Date of service: 04/05/20 Time of Service: 12:58 Assessment and Plan Assessment and plan (1) Contusion of lung without open wound into thorax: Status: Acute (2) Fracture of transverse process of spine without spinal cord lesion: Status: Acute Assessment and plan: does not require bracing. no neurologic complications (3) Traumatic pneumohemothorax: Status: Acute Assessment and plan: resolved (4) Low-energy blunt traumatic injury of chest: Status: Acute (5) Multiple fractures of ribs of right side: Status: Acute Assessment and plan: pt doing well and feels pain is controlled on oral meds doing well w/ IS no signs of penumnoia will f/u on watch for constiaption Discussed with patient pain management. Discussed with patient warning signs. Discussed with patient activity at length. See discharge summary Subjective Subjective Interval history since last seen: Pt is doing well. no headaches. No productive cough or SOB. no productive cough. no dysuria. no leg pain or swelling. Pain is signif better w/ rib blocks. pt has been up walking. He dd have a BM. he would like to go home Exam Const General: cooperative, healthy appearing, comfortable, no acute distress, well developed and well groomed Nutritional Appearance: average body habitus and well nourished Orientation: alert, awake and oriented x3 HENMT Head: normal to inspection, normocephalic and atraumatic Ears: hearing grossly normal bilaterally and external ears normal General nose exam: external nose normal Face and sinus: normal facial exam and sinuses nontender Mouth: oral mucosae normal, lip normal, tongue normal and moist mucous membranes Teeth and gingiva: dentition normal Eyes General: appearance normal, both eyes and all related structures Conjunctivae: conjunctivae normal Sclera: sclerae normal Pupils: PERRL Neck Neck: normal visual inspection and full ROM Chest Chest: abnormal inspection of the chest, localized rib tenderness with anteroposterior compression and tenderness Other: pr know notes pain in R shoulder know that he has the rib blocks in place. He has very limited abduction. This may be from acute and the Fx or from rotator cuff injury. Will see how he progresses in the next few weeks. If no improvement in 2-4wks, will obtain MRI Resp Effort & Inspection: normal respiratory effort, able to speak in complete sentences, no cough, no nasal flaring, not tachypneic and no use of accessory muscles Auscultation: clear to auscultation bilaterally, no rales, no rhonchi and no wheezes Cardio Jugular venous pressure: no JVD Rate: regular rate Rhythm: regular rhythm GI Inspection: normal to inspection, no edema and non-distended Palpation: soft, no masses, nontender and No ascites Auscultation: normal bowel sounds Skin General skin exam: no rashes or lesions noted Trauma: no lacerations or abrasions Neuro General: patient alert, patient oriented x3, oriented, gait normal, moves all extremities, no focal motor deficits and CN's II-XI intact bilaterally Cognition: normal cognition Speech: speech normal Gait: normal gait Motor: muscle tone normal throughout Extrem General: normal to inspection, full ROM and no clubbing, cyanosis or edema Psych Appearance: grossly normal and well kempt Mental Status: mental status grossly normal Speech and Movement: speech and movement normal Affect: normal affect Objective Objective Clinical Data: Vital Signs Temperature 36.7 C 04/05/20 03:16 Temperature Source Tympanic 04/05/20 03:16 Pulse 56 L 04/05/20 03:16 Pulse Rhythm Regular 04/05/20 08:00 Pulse 85 04/03/20 20:01 Respiratory Rate 17 04/05/20 03:16 Respiratory Effort Short of Breath 04/05/20 08:00 Respiratory Depth Normal 04/05/20 08:00 Respiratory Pattern Normal 04/05/20 08:00 Blood Pressure 101/66 04/05/20 03:16 Blood Pressure Mean 76 04/03/20 20:01 Pulse Oximetry 97 04/05/20 08:00 Oxygen Delivery Method Room Air 04/05/20 08:00 Oxygen Flow Rate 0 04/05/20 08:00 Pain Level 4 04/05/20 03:16 Intake & Output 04/04/20 04/05/20 04/05/20 23:59 11:59 23:59 Intake Total 1060 / 1300 Balance 1060 / 1300 Intake: IV Oral 1050 / 1290 Other: Urine Color Yellow Urine Appearance Clear Clear Urine Odor Normal Voiding Methods Toilet Toilet Laboratory Results WBC 6.79 k/cumm (4.4-10.8) D 04/04/20 06:25 RBC 4.56 m/cumm (4.50-6.00) 04/04/20 06:25 Hgb 13.1 g/dL (13.5-17.5) L 04/04/20 06:25 Hct 39.8 % (40.0-50.0) L 04/04/20 06:25 MCV 87.3 fL (80-95) 04/04/20 06:25 MCH 28.7 pg (27.0-33.0) 04/04/20 06:25 MCHC 32.9 g/dL (32.0-36.0) 04/04/20 06:25 RDW 13.7 % (11.8-14.1) 04/04/20 06:25 Plt Count 252 x1000/uL (130-400) 04/04/20 06:25 MPV 9.9 fL (8.0-11.0) 04/04/20 06:25 Immature Gran % 0.1 % 04/04/20 06:25 Neutrophils % 70.7 04/04/20 06:25 Lymphocytes % 16.6 04/04/20 06:25 Monocytes % 11.2 04/04/20 06:25 Eosinophils % 1.3 04/04/20 06:25 Basophils % 0.1 04/04/20 06:25 Absolute Neutrophils 4.80 k/cumm (1.2-6.7) 04/04/20 06:25 Absolute Lymphocytes 1.13 k/cumm (1.2-3.4) L 04/04/20 06:25 Absolute Monocytes 0.76 k/cumm (0.11-0.7) H 04/04/20 06:25 Absolute Eosinophils 0.09 k/cumm (0.0-0.7) 04/04/20 06:25 Absolute Basophils 0.01 k/cumm (0.0-0.2) 04/04/20 06:25 Sodium 138 mmol/L (136-145) 04/04/20 06:25 Potassium 4.2 mmol/L (3.5-5.1) 04/04/20 06:25 Chloride 104 mmol/L (98-107) 04/04/20 06:25 Carbon Dioxide 26.8 mmol/L (21.0-32.0) 04/04/20 06:25 Anion Gap 7.2 mmol/L (3-11) 04/04/20 06:25 BUN 13 mg/dL (7-18) D 04/04/20 06:25 Creatinine 1.21 mg/dL (0.70-1.30) 04/04/20 06:25 Estimated GFR/1.73 m2 >= 60.00 (mL/min/1.73m2) 04/04/20 06:25 Glucose 112 mg/dL (74-106) H 04/04/20 06:25 Calcium 8.2 mg/dL (8.5-10.1) L 04/04/20 06:25 Total Bilirubin 0.9 mg/dL (0.2-1.0) 04/04/20 06:25 AST 86 U/L (15-37) H 04/04/20 06:25 ALT 48 U/L (16-63) 04/04/20 06:25 Alkaline Phosphatase 58 U/L (46-116) 04/04/20 06:25 Total Protein 6.9 g/dL (6.4-8.2) 04/04/20 06:25 Albumin 3.4 g/dL (3.4-5.0) 04/04/20 06:25 Lipase 27 U/L (73-393) 04/04/20 06:25 COVID-19 PCR Negative (Negative) 04/03/20 19:14 Nasopharyn COVID-19 PCR Not Applicable 04/03/20 19:14 Ref Test Perform Site Critical access hospital lab 04/03/20 19:14
[2020-04-05 13:58] VITALS: PULSE 70
--- NOTE | 2020-04-05 20:18 | INITIAL_ITS ---
- If Service Date Differs Date of service: 04/05/20 Time of Service: 20:18 Care Management Initial Assess REASON FOR HOSPITALIZATION:: Multiple Fractured ribs PAST MEDICAL HISTORY/PAST SURGICAL HISTORY:: Medical History (Updated 04/03/20 @ 21:57 by Veronica Rolon DO). Chronic sinusitis (Acute). Contusion of lung without open wound into thorax (Acute). Fracture of transverse process of spine without spinal cord lesion (Acute). Low-energy blunt traumatic injury of chest (Acute). Traumatic pneumohemothorax (Acute) PREVIOUS FUNCTIONAL STATUS/SOCIAL/FAMILY SUPPORTS:: pee lives in a single family home with his (together 28 years) and 3 children. 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 He is independent at baseline and needs no community services. CURRENT FUNCTIONAL STATUS:: Pee stated that he was injured when he fell about 10 feet off of his truck. He stated that he has multiple fractured ribs and a punctured lung. He syayed that pain is not too bad because he had a block. He shared that he hopes to be able to go home today. ADVANCE DIRECTIVES:: none on file Has patient been provided with info about the portal/API?: No Did the patient sign up for the portal?: No CODE STATUS:: Full Code INSURANCE COVERAGE / FINANCIAL ISSUES:: Self pay CURRENT HOME/COMMUNITY SERVICES/EQUIPMENT:: none PRIMARY CARE PHYSICIAN:: Johan Ferreira POTENTIAL DISCHARGE NEEDS:: follow up with surgeon and PCP PATIENT/FAMILY EDUCATION NEEDS:: Limitations, Discharge plan, Ask Me Three TRANSPORTATION:: via private vehicle with family PLAN:: Pee will discharge home with no services. He will follow up with his surgeon and PCP and transport with family.
--- NOTE | 2020-04-05 20:26 | PDOC.CMDIS ---
- If Service Date Differs Date of service: 04/05/20 Time of Service: 20:26 LACE Index Scoring Tool - Questions: Length of Stay (in days): 1 Acuity (Admit via E.D.?): Yes E.D. Visits: 1 - Answers: Total Score: 5 Risk of Readmission: Low Risk Care Management Discharge Reason for Hospitalization: Multiple Fractured ribs Discharge Plan: Pee will discharge home with no services. He will follow up with his surgeon and PCP and transport with family. Patient/Family Education Needs: Limitations, Discharge plan, Ask Me Three
== END 2020-04-05 14:45 | disposition home or self-care (01) | DRG 200 ==
LOC: ER 19:54 → MS 20:43
PROVIDERS: Admitting Provider Surgery; Emergency Provider Emergency Medicine; PCP Nurse Practitioner Family; Visit Provider Surgery
DX: S27.0XXA Traumatic pneumothorax, initial encounter (principal); S22.41XA Multiple fractures of ribs, right side, initial encounter for closed fracture; S27.322A Contusion of lung, bilateral, initial encounter; S22.028A Other fracture of second thoracic vertebra, initial encounter for closed fracture; J32.9 Chronic sinusitis, unspecified; W17.89XA Other fall from one level to another, initial encounter; Y93.89 Activity, other specified; Y99.0 Civilian activity done for income or pay
CPT/HCPCS: 64461; 64462; 36415; 74177; 76942; 80053; 83690; 96361; 96374; 96375; 97161; 99223; 99232; 99238; 99285; J1650; NC; U0003; 70450; 71046; 71260; 72125; 73030; 85025; 94640; J1885; J3490; J7613; L0172

== ENCOUNTER 2020-04-09 01:47 | Outpatient (CLI) | payer OTHER, SELFPAY ==
--- NOTE | 2020-04-09 08:30 | DI.RAD_ITS ---
EXAM: XR CHEST 2V PA LATERAL CLINICAL HISTORY: f/u lung contusion,and fx, s/p trauma, f/.u,[id number] TECHNIQUE: 2D digital imaging was performed. COMPARISON: No exams were available for comparison FINDINGS: MEDIASTINUM: Normal. HEART: Normal. PULMONARY VASCULATURE: Normal. LUNGS: There is an opacity seen in the right posterior costophrenic sulcus medially. This may repres ent effusion and/or infiltrate. Note is made of an azygos lobe. PLEURAL SPACE: There is blunting of the posterior costophrenic angle on the left which may represent a small perfusion. No pneumothorax. BONE:There are deformities involving the multiple right rib suspicious for fractures OTHER FINDINGS:Normal. IMPRESSION: 1. Opacity seen in the posterior medial right hemithorax. This may represent an infiltrate and/or ef fusion. 2. Small left pleural effusion. 3. Multiple right rib fracture deformities. DATA REPOSITORY: RADIATION DOSE DELIVERED:
== END 2020-04-09 02:07 ==
PROVIDERS: PCP Nurse Practitioner Family; Visit Provider Surgery
DX: S27.321D Contusion of lung, unilateral, subsequent encounter (principal); S22.41XD Multiple fractures of ribs, right side, subsequent encounter for fracture with routine healing; J90 Pleural effusion, not elsewhere classified
CPT/HCPCS: 71046

== ENCOUNTER 2020-04-16 10:55 | Outpatient (CLI) | payer OTHER, SELFPAY ==
--- NOTE | 2020-04-16 10:30 | DI.RAD_ITS ---
EXAM: XR CHEST 2V PA LATERAL CLINICAL HISTORY: follow up xray, contusion lung, blunt trauma, traumatic pneumothorax, TECHNIQUE: 2D digital imaging was performed. COMPARISON: CT CT CHEST/ABD/PEL W from 04/03/2020 CR,XR XR SHOULDER RT COMPLETE 2+V from 04/03/2020 CR XR CHEST 2V PA LATERAL from 04/04/2020 FINDINGS: MEDIASTINUM: Normal. HEART: Normal. PULMONARY VASCULATURE: Normal. LUNGS: Clear. Azygos lobe. PLEURAL SPACE: There is minimal residual blunting at the right costophrenic angle. No pneumothorax. BONE:Right lateral rib deformities. IMPRESSION: Minimal residual right pleural effusion versus pleural thickening. No pneumothorax. DATA REPOSITORY: RADIATION DOSE DELIVERED:
== END 2020-04-16 11:15 ==
PROVIDERS: PCP Nurse Practitioner Family; Visit Provider Surgery
DX: S27.2XXA Traumatic hemopneumothorax, initial encounter (principal); S27.329A Contusion of lung, unspecified, initial encounter; S29.9XXA Unspecified injury of thorax, initial encounter
CPT/HCPCS: 71046

== ENCOUNTER 2020-05-02 02:23 | Outpatient (CLI) | payer OTHER, SELFPAY ==
--- NOTE | 2020-05-02 10:48 | DI.RAD_ITS ---
EXAM: XR CHEST 2V PA LATERAL CLINICAL HISTORY: f/u fx, contusion TECHNIQUE: 2D digital imaging was performed. COMPARISON: CT CT CHEST/ABD/PEL W from 04/03/2020 CR XR CHEST 2V PA LATERAL from 04/16/2020 FINDINGS: MEDIASTINUM: Normal. HEART: Normal. PULMONARY VASCULATURE: Normal. LUNGS: Linear scarring is seen in the lung bases. Note is made of an azygos lobe which is a normal v ariant. PLEURAL SPACE: No pleural effusion or pneumothorax. BONE:Rib fractures were best appreciated on the CT scan from 04/03/2020. OTHER FINDINGS:Normal. IMPRESSION: No acute pulmonary findings. No pneumothorax. DATA REPOSITORY: RADIATION DOSE DELIVERED:
== END 2020-05-02 02:43 ==
PROVIDERS: PCP Nurse Practitioner Family; Visit Provider Surgery
DX: S22.41XD Multiple fractures of ribs, right side, subsequent encounter for fracture with routine healing (principal); S27.321D Contusion of lung, unilateral, subsequent encounter
CPT/HCPCS: 71046

== ENCOUNTER 2020-05-20 00:55 | Outpatient (CLI) | payer OTHER, SELFPAY ==
--- NOTE | 2020-05-20 09:45 | DI.MRI_ITS ---
EXAM: MR UPPER JOINT RT WO CLINICAL HISTORY: . TECHNIQUE: Multiplanar multisequence MRI was performed. COMPARISON: No exams were available for comparison FINDINGS: BONES: There is marrow edema seen in the distal clavicle. No definite fracture is appreciated. JOINTS: Increased signal seen within the acromioclavicular joint. There are findings suspicious for an AC joint ligament tear. The glenohumeral joint is normal. TENDONS: Supraspinatus: Tendinosis of the supraspinatus. Infraspinatus: Unremarkable. Subscapularis: Tendinosis of the subscapularis. Teres Minor: Unremarkable. Biceps and [place]: Tendinosis of the proximal biceps tendon. MUSCLES: Unremarkable. GLENOID LABRUM: Unremarkable on this noncontrast examination. SOFT TISSUES: See the ligaments section. LIGAMENTS: There is hyperintense signal seen on the T2 weighted images within and around the coracocl avicular ligament. There is a question of disruption of the fibers of the ligament laterally. OTHER: Subacromial and subdeltoid bursae are unremarkable. IMPRESSION: 1. Hyperintense signal seen within and around the coracoclavicular ligament. There also is a questio n of a tear of the lateral aspect of the coracoclavicular ligament. 2. Hyperintense signal seen in the region of the acromioclavicular ligament suspicious for tear. 3. Contusion involving the distal clavicle. 4. Tendinosis involving rotator cuff tendons as described above. DATA REPOSITORY:
== END 2020-05-20 01:15 ==
PROVIDERS: PCP Nurse Practitioner Family; Visit Provider Surgery
DX: M67.813 Other specified disorders of tendon, right shoulder (principal); S40.011A Contusion of right shoulder, initial encounter; M75.21 Bicipital tendinitis, right shoulder
CPT/HCPCS: 73221

== ENCOUNTER 2020-05-28 11:28 | Outpatient (CLI) | payer OTHER, SELFPAY ==
--- NOTE | 2020-05-28 09:30 | DI.RAD_ITS ---
EXAM: XR ACROMIO CLAVICULAR JOINTS INDICATION: fu injury right rotator cuff. COMPARISON: CR,XR XR SHOULDER RT COMPLETE 2+V from 04/03/2020 CR XR CHEST 2V PA LATERAL from 05/02/2020 MR MR UPPER JOINT RT WO from 05/20/2020 TECHNIQUE: 2D digital imaging was performed. FINDINGS: There is widening the right acromial clavicular joint compared with the left. There is also slight w idening of the coracoclavicular distance. There are mild degenerative changes of both AC joints. Th ere is spurring at the margin of the glenoid. IMPRESSION: Right AC separation. DATA REPOSITORY: RADIATION DOSE DELIVERED:
== END 2020-05-28 11:48 ==
PROVIDERS: PCP Nurse Practitioner Family; Referring Provider Nurse Practitioner Family; Visit Provider Student in an Organized Health Care Education/Training Program
DX: S43.101A Unspecified dislocation of right acromioclavicular joint, initial encounter (principal)
CPT/HCPCS: 73050

== ENCOUNTER 2020-07-02 15:59 | Outpatient (CLI) | payer OTHER, SELFPAY ==
--- NOTE | 2020-07-02 08:15 | DI.RAD_ITS ---
EXAM: XR SHOULDER RT COMPLETE 2+V CLINICAL HISTORY: fu right shoulder. TECHNIQUE: 2D digital imaging was performed. COMPARISON: CR,XR XR SHOULDER RT COMPLETE 2+V from 04/03/2020 CR XR ACROMIO CLAVICULAR JOINTS from 05/28/2020 FINDINGS: BONES: Old right rib fractures are again noted. No bony destructive lesion is seen. JOINTS: There is widening of the right AC joint with mild elevation of the distal clavicle relative t o the acromion. SOFT TISSUE: Normal. IMPRESSION: 1. Right AC joint separation. 2. Healing right rib fractures. DATA REPOSITORY: RADIATION DOSE DELIVERED:
== END 2020-07-02 16:19 ==
PROVIDERS: PCP Nurse Practitioner Family; Visit Provider Student in an Organized Health Care Education/Training Program
DX: S43.101A Unspecified dislocation of right acromioclavicular joint, initial encounter (principal); S22.41XD Multiple fractures of ribs, right side, subsequent encounter for fracture with routine healing
CPT/HCPCS: 73030